=== PATIENT | male | born 1940 | race Caucasian/White ===

== ENCOUNTER 2017-12-15 07:13 | Outpatient (CLI) | payer MEDICARE, BC ==
[2017-12-15 12:04] LABS: ALBUMIN 4.4 g/dL (3.2-5.5); ALBUMIN/GLOBULIN RATIO 1.5 (1.0-2.2); BILIRUBIN,TOTAL 0.8 mg/dL (0.2-1.0); CALCIUM 9.3 mg/dL (8.5-10.3); CREATININE 1.9 mg/dL (0.6-1.2); TOTAL PROTEIN 7.4 g/dL (6.7-8.2)
[2017-12-15 12:24] LABS: THYROID STIMULATING HORMONE 0.55 uIU/mL (0.34-5.60)
[2017-12-15 12:26] LABS: FREE T4 (FREE THYROXINE) 0.8 ng/dL (0.58-1.64)
[2017-12-15 12:45] LABS: HB2 TOTAL 12.8 g/dL; HEMOGLOBIN A1C 0.6 g/dL; HEMOGLOBIN A1C % 6.4 % (4.6-6.2)
[2017-12-15 17:39] LABS: BASOPHILS # (AUTO) 0.1 10^3/uL (0.0-0.1); BASOPHILS % (AUTO) 1.4 %; EOSINOPHILS # (AUTO) 0.6 10^3/uL (0.0-0.7); EOSINOPHILS % (AUTO) 11.1 %; HGB - HEMOGLOBIN 11.7 g/dL (14.0-18.0); LYMPHOCYTES % (AUTO) 17.7 %; MEAN CORPUSCULAR HEMOGLOBIN 31.3 pg (27.0-31.0); MEAN CORPUSCULAR HGB CONC 33.1 g/dL (32.0-36.0); MEAN CORPUSCULAR VOLUME 94.7 fL (80.0-94.0); MEAN PLATELET VOLUME 8.6 fL (7.4-11.4); MONOCYTES # (AUTO) 0.5 10^3/uL (0.0-1.0); MONOCYTES % (AUTO) 9.5 %; NEUTROPHILS # (AUTO) 3.3 10^3/uL (1.5-6.6); NEUTROPHILS % (AUTO) 60.3 %; PLT - PLATELET COUNT 258 10^3/uL (130-450); RED BLOOD COUNT 3.73 10^6/uL (4.70-6.10); RED CELL DISTRIBUTION WIDTH 14.2 % (12.0-15.0); WHITE BLOOD COUNT 5.5 x10^3/uL (4.8-10.8)
[2017-12-17 18:52] LABS: HDL LARGE 4753 nmol/L (3382-9376); LDL PARTICLE NUMBER 1140 nmol/L (732-2035); LDL PATTERN B Pattern (A); LDL PEAK SIZE 215.8 Angstrom (> OR = 217.4); LDL SMALL 224 nmol/L (85-473)
== END 2017-12-15 07:14 | disposition home or self-care (01) ==
LOC: LAB.F 07:13
PROVIDERS: ATTEND Internal Medicine
DX: E11.65 Type 2 diabetes mellitus with hyperglycemia (principal); E78.2 Mixed hyperlipidemia; E03.9 Hypothyroidism, unspecified; E11.22 Type 2 diabetes mellitus with diabetic chronic kidney disease; N18.3 Chronic kidney disease, stage 3 (moderate); R80.9 Proteinuria, unspecified
CPT/HCPCS: 36415; 80053; 80069; 81599; 82465; 83036; 83704; 83718; 84100; 84156; 84439; 84443; 84478; 85025

== ENCOUNTER 2017-12-30 05:57 | Outpatient (CLI) | payer MEDICARE, BC | END 2017-12-30 05:58 | disposition short-term general hospital (02) | LOC: EMS 05:57 | PROVIDERS: ATTEND Surgery | DX: R55 Syncope and collapse (principal); R11.2 Nausea with vomiting, unspecified | CPT/HCPCS: A0170; A0425; A0427 ==

== ENCOUNTER 2018-01-26 07:12 | Outpatient (CLI) | payer MEDICARE, BC ==
[2018-01-26 12:19] LABS: CALCIUM 9.5 mg/dL (8.5-10.3); PHOSPHORUS 4.1 mg/dL (2.5-4.6)
== END 2018-01-26 07:13 | disposition home or self-care (01) ==
LOC: LAB.F 07:12
PROVIDERS: ATTEND Internal Medicine
DX: N18.3 Chronic kidney disease, stage 3 (moderate) (principal); R80.9 Proteinuria, unspecified
CPT/HCPCS: 36415; 80069; 84156

== ENCOUNTER 2018-03-17 07:39 | Outpatient (CLI) | payer MEDICARE, BC ==
[2018-03-17 15:53] LABS: ALBUMIN 4.3 g/dL (3.2-5.5); CALCIUM 9.2 mg/dL (8.5-10.3); CREATININE 1.5 mg/dL (0.6-1.2); PHOSPHORUS 3.7 mg/dL (2.5-4.6); URIC ACID 7.2 mg/dL (2.6-7.2)
[2018-03-17 16:00] LABS: CREATININE,URINE 85.7 mg/dL; PROTEIN/CREATININE RATIO,URINE 0.1 (<=0.2)
== END 2018-03-17 07:40 | disposition home or self-care (01) ==
LOC: LAB.F 07:39
PROVIDERS: ATTEND Internal Medicine Nephrology
DX: N18.3 Chronic kidney disease, stage 3 (moderate) (principal); R80.9 Proteinuria, unspecified
CPT/HCPCS: 36415; 80069; 82306; 82570; 83036; 83970; 84156; 84550

== ENCOUNTER 2018-12-31 07:10 | Outpatient (CLI) | payer MEDICARE, BC ==
[2018-12-31 10:15] LABS: BASOPHILS # (AUTO) 0.1 10^3/uL (0.0-0.1); BASOPHILS % (AUTO) 0.8 %; EOSINOPHILS # (AUTO) 0.3 10^3/uL (0.0-0.7); EOSINOPHILS % (AUTO) 4.2 %; HGB - HEMOGLOBIN 12.4 g/dL (14.0-18.0); LYMPHOCYTES # (AUTO) 1.2 10^3/uL (1.5-3.5); LYMPHOCYTES % (AUTO) 18.5 %; MEAN CORPUSCULAR HEMOGLOBIN 30.8 pg (27.0-31.0); MEAN CORPUSCULAR HGB CONC 32.7 g/dL (32.0-36.0); MEAN CORPUSCULAR VOLUME 94.3 fL (80.0-94.0); MONOCYTES # (AUTO) 0.8 10^3/uL (0.0-1.0); MONOCYTES % (AUTO) 12.1 %; NEUTROPHILS # (AUTO) 4.1 10^3/uL (1.5-6.6); NEUTROPHILS % (AUTO) 64.1 %; PLT - PLATELET COUNT 233 10^3/uL (130-450); RED BLOOD COUNT 4.02 10^6/uL (4.70-6.10); RED CELL DISTRIBUTION WIDTH 13.8 % (12.0-15.0); WHITE BLOOD COUNT 6.4 x10^3/uL (4.8-10.8)
[2018-12-31 10:32] LABS: ALBUMIN 4.3 g/dL (3.2-5.5); ALBUMIN/GLOBULIN RATIO 1.5 (1.0-2.2); ALKALINE PHOSPHATASE 60 IU/L (42-121); ALT ALANINE AMINOTRANSFERASE 31 IU/L (10-60); AST ASPARTATE AMINOTRANSFERASE 22 IU/L (10-42); BILIRUBIN,TOTAL 1.1 mg/dL (0.2-1.0); BUN - BLOOD UREA NITROGEN 23 mg/dL (6-20); CALCIUM 9.7 mg/dL (8.5-10.3); CARBON DIOXIDE - CO2 22 mmol/L (21-32); CHLORIDE 106 mmol/L (101-111); CHOL/HDL RATIO 3.1 (<5.0); CHOLESTEROL 109 mg/dL; CREATININE 1.6 mg/dL (0.6-1.2); GFR - MDRD 42 (>89); GLUCOSE 109 mg/dL (70-100); HDL CHOLESTEROL 35 mg/dL; LDL CHOLESTEROL,CALCULATED 58 mg/dL; LDL/HDL RATIO 1.7 (<3.6); SODIUM 142 mmol/L (135-145); TOTAL PROTEIN 7.2 g/dL (6.7-8.2); VLDL CHOLESTEROL 16 mg/dL
[2018-12-31 10:39] LABS: HB2 TOTAL 12.7 g/dL; HEMOGLOBIN A1C 0.6 g/dL; HEMOGLOBIN A1C % 6.5 % (4.6-6.2)
[2018-12-31 10:44] LABS: THYROID STIMULATING HORMONE 0.95 uIU/mL (0.34-5.60)
[2018-12-31 10:46] LABS: FREE T4 (FREE THYROXINE) 0.88 ng/dL (0.58-1.64)
== END 2018-12-31 07:11 | disposition home or self-care (01) ==
LOC: LAB.S 07:10
PROVIDERS: ATTEND Family Medicine
DX: E11.22 Type 2 diabetes mellitus with diabetic chronic kidney disease (principal); I12.9 Hypertensive chronic kidney disease with stage 1 through stage 4 chronic kidney disease, or unspecified chronic kidney disease; N18.3 Chronic kidney disease, stage 3 (moderate); R80.9 Proteinuria, unspecified; E78.2 Mixed hyperlipidemia
CPT/HCPCS: 36415; 80053; 80061; 82043; 82570; 83036; 83721; 84100; 84156; 84439; 84443; 85025

== ENCOUNTER 2019-03-11 06:58 | Outpatient (CLI) | payer MEDICARE, BC ==
[2019-03-11 10:30] LABS: ALBUMIN 4.3 g/dL (3.2-5.5); CREATININE 1.5 mg/dL (0.6-1.2); PHOSPHORUS 3.9 mg/dL (2.5-4.6)
== END 2019-03-11 06:59 | disposition home or self-care (01) ==
LOC: LAB.S 06:58
PROVIDERS: ATTEND Internal Medicine
DX: N18.3 Chronic kidney disease, stage 3 (moderate) (principal); R80.9 Proteinuria, unspecified
CPT/HCPCS: 36415; 80069; 84155; 84156

== ENCOUNTER 2019-03-17 06:54 | Outpatient (CLI) | payer MEDICARE, BC ==
[2019-03-17 10:26] LABS: BASOPHILS # (AUTO) 0.1 10^3/uL (0.0-0.1); EOSINOPHILS # (AUTO) 0.3 10^3/uL (0.0-0.7); EOSINOPHILS % (AUTO) 5.2 %; HGB - HEMOGLOBIN 12.5 g/dL (14.0-18.0); LYMPHOCYTES # (AUTO) 1.2 10^3/uL (1.5-3.5); MEAN CORPUSCULAR HEMOGLOBIN 30.6 pg (27.0-31.0); MEAN CORPUSCULAR HGB CONC 32.8 g/dL (32.0-36.0); MEAN CORPUSCULAR VOLUME 93.4 fL (80.0-94.0); MEAN PLATELET VOLUME 10.6 fL (7.4-11.4); MONOCYTES # (AUTO) 0.8 10^3/uL (0.0-1.0); MONOCYTES % (AUTO) 12.6 %; NEUTROPHILS # (AUTO) 3.6 10^3/uL (1.5-6.6); NEUTROPHILS % (AUTO) 60.9 %; PLT - PLATELET COUNT 226 10^3/uL (130-450); RED BLOOD COUNT 4.08 10^6/uL (4.70-6.10); RED CELL DISTRIBUTION WIDTH 13.7 % (12.0-15.0)
[2019-03-17 10:37] LABS: ALBUMIN 4.3 g/dL (3.2-5.5); ALBUMIN/GLOBULIN RATIO 1.6 (1.0-2.2); ALKALINE PHOSPHATASE 53 IU/L (42-121); ALT ALANINE AMINOTRANSFERASE 22 IU/L (10-60); AST ASPARTATE AMINOTRANSFERASE 17 IU/L (10-42); BUN - BLOOD UREA NITROGEN 28 mg/dL (6-20); CARBON DIOXIDE - CO2 24 mmol/L (21-32); CHLORIDE 107 mmol/L (101-111); CHOL/HDL RATIO 3.7 (<5.0); CHOLESTEROL 126 mg/dL; CREATININE 1.6 mg/dL (0.6-1.2); GFR - MDRD 42 (>89); GLUCOSE 98 mg/dL (70-100); HDL CHOLESTEROL 34 mg/dL; LDL CHOLESTEROL,CALCULATED 77 mg/dL; LDL/HDL RATIO 2.3 (<3.6); SODIUM 140 mmol/L (135-145); VLDL CHOLESTEROL 15 mg/dL
[2019-03-17 10:43] LABS: HB2 TOTAL 12.8 g/dL; HEMOGLOBIN A1C 0.63 g/dL; HEMOGLOBIN A1C % 6.7 % (4.6-6.2)
[2019-03-17 10:47] LABS: THYROID STIMULATING HORMONE 0.85 uIU/mL (0.34-5.60)
[2019-03-17 10:49] LABS: FREE T4 (FREE THYROXINE) 0.79 ng/dL (0.58-1.64)
== END 2019-03-17 06:55 | disposition home or self-care (01) ==
LOC: LAB.S 06:54
PROVIDERS: ATTEND Family Medicine
DX: E11.9 Type 2 diabetes mellitus without complications (principal); E78.2 Mixed hyperlipidemia; I10 Essential (primary) hypertension
CPT/HCPCS: 36415; 80053; 80061; 83036; 83721; 84439; 84443; 85025

== ENCOUNTER 2019-11-25 07:01 | Outpatient (CLI) | payer MEDICARE, BC ==
[2019-11-25 15:08] LABS: BASOPHILS # (AUTO) 0.1 10^3/uL (0.0-0.1); BASOPHILS % (AUTO) 0.9 %; EOSINOPHILS # (AUTO) 0.3 10^3/uL (0.0-0.7); EOSINOPHILS % (AUTO) 4.3 %; HGB - HEMOGLOBIN 14.4 g/dL (14.0-18.0); LYMPHOCYTES # (AUTO) 1.1 10^3/uL (1.5-3.5); LYMPHOCYTES % (AUTO) 16.2 %; MEAN CORPUSCULAR HEMOGLOBIN 29.6 pg (27.0-31.0); MEAN CORPUSCULAR HGB CONC 31.2 g/dL (32.0-36.0); MEAN CORPUSCULAR VOLUME 95.1 fL (80.0-94.0); MEAN PLATELET VOLUME 10.8 fL (7.4-11.4); MONOCYTES # (AUTO) 0.8 10^3/uL (0.0-1.0); MONOCYTES % (AUTO) 12.2 %; NEUTROPHILS # (AUTO) 4.3 10^3/uL (1.5-6.6); NEUTROPHILS % (AUTO) 65.9 %; PLT - PLATELET COUNT 244 10^3/uL (130-450); RED BLOOD COUNT 4.86 10^6/uL (4.70-6.10); RED CELL DISTRIBUTION WIDTH 15.4 % (12.0-15.0); WHITE BLOOD COUNT 6.5 x10^3/uL (4.8-10.8)
[2019-11-25 15:57] LABS: HB2 TOTAL 15.1 g/dL; HEMOGLOBIN A1C 0.65 g/dL; HEMOGLOBIN A1C % 6.1 % (4.6-6.2)
[2019-11-25 15:58] LABS: ALBUMIN 3.9 g/dL (3.2-5.5); ALBUMIN/GLOBULIN RATIO 1.3 (1.0-2.2); BILIRUBIN,TOTAL 1.1 mg/dL (0.2-1.0); CALCIUM 9.2 mg/dL (8.5-10.3); CREATININE 1.8 mg/dL (0.6-1.2); TOTAL PROTEIN 6.9 g/dL (6.7-8.2)
[2019-11-25 16:05] LABS: CHOL/HDL RATIO 2.8 (<5.0); CHOLESTEROL 109 mg/dL; HDL CHOLESTEROL 39 mg/dL; LDL CHOLESTEROL,CALCULATED 61 mg/dL; LDL/HDL RATIO 1.6 (<3.6); VLDL CHOLESTEROL 9 mg/dL
== END 2019-11-25 07:02 | disposition home or self-care (01) ==
LOC: LAB.S 07:01
PROVIDERS: ATTEND Internal Medicine
DX: E11.21 Type 2 diabetes mellitus with diabetic nephropathy (principal); E11.22 Type 2 diabetes mellitus with diabetic chronic kidney disease; N18.4 Chronic kidney disease, stage 4 (severe); E29.1 Testicular hypofunction
CPT/HCPCS: 36415; 80053; 80061; 82306; 83036; 83721; 83970; 84100; 84156; 84403; 85025

== ENCOUNTER 2020-01-24 04:33 | Emergency (ER) | payer MEDICARE, BC ==
[2020-01-24] MEDS ORDERED: BUFFERED LIDOCAINE 10 ML SYRINGE IU ONE (04:48)
[2020-01-24] MEDS ORDERED: BACITRACIN ZINC OINT 1 PACKET TOP STA (05:22)
[2020-01-24] MEDS ORDERED: TETANUS/DIPHTHERIA/PERTUSSIS 0.5 ML SYRINGE IM ONE (05:34)
--- NOTE | 2020-01-24 05:42 | ED Physician Documentation ---
History of Present Illness - Stated complaint Stated Complaint: EYE LAC - Chief complaint Chief Complaint: Laceration - History obtained from History obtained from: Patient, Family - Additonal information Additional information: Patient comes emergency department complaining of laceration to left eyebrow after rolling out of bed while sleeping and falling onto a partially open door of his nightstand. Patient did not lose consciousness. He was not hurt in any other way. He takes a baby aspirin daily but no other anticoagulants. Patient denies visual changes. No headache. No focal neurologic deficits. No other complaints at this time. Review of Systems Ten Systems: 10 systems reviewed and negative Constitutional: reports: Reviewed and negative Eyes: reports: Reviewed and negative Ears: reports: Reviewed and negative Nose: reports: Reviewed and negative Throat: reports: Reviewed and negative Cardiac: reports: Reviewed and negative Respiratory: reports: Reviewed and negative GI: reports: Reviewed and negative : reports: Reviewed and negative Skin: reports: Laceration (s) Musculoskeletal: reports: Reviewed and negative Neurologic: reports: Reviewed and negative Psychiatric: reports: Reviewed and negative Endocrine: reports: Reviewed and negative Immunocompromised: reports: Reviewed and negative PD PAST MEDICAL HISTORY - Past Medical History Past Medical History: Yes - Past Surgical History Past Surgical History: Yes - Present Medications Home Medications: Ambulatory Orders Medication Instructions Recorded Confirmed Aspirin [Aspirin EC] 81 mg PO 01/24/20 - Allergies Allergies/Adverse Reactions: Allergies Allergy/AdvReac Type Severity Reaction Status Date / Time No Known Drug Allergies Allergy Verified 01/24/20 04:44 - Social History Does the pt smoke?: No Smoking Status: Never smoker Does the pt drink ETOH?: Yes Does the pt have substance abuse?: No - Immunizations Immunizations are current?: Yes - POLST Patient has POLST: No PD ED PE NORMAL - Vitals Vital signs reviewed: Yes - General General: Alert and oriented X 3, No acute distress, Well developed/nourished - HEENT HEENT: PERRL, EOMI, Moist mucous membranes, Other (3 cm Curvilinear laceration to left eyebrow. Obliquely angled Superiorly. No foreign bodies. Approximate depth 1 cm obliquely. Mild active bleeding.) - Neck Neck: Supple, no meningeal sign - Respiratory Respiratory: No respiratory distress - Derm Derm: Normal color, Warm and dry, No rash - Extremities Extremities: No deformity - Neuro Neuro: Alert and oriented X 3 - Psych Psych: Normal mood, Normal affect Results - Vitals Vitals: Vital Signs - 24 hr 01/24/20 04:42 Temperature 36.3 C L Heart Rate 64 Respiratory 18 Rate Blood Pressure 156/73 H O2 Saturation 95 Oxygen O2 Source Room air Procedures - Laceration (location) L eyebrow Length in cm: 3 Wound type: Curved, Into subcut fat, Clean Tendon involvement: No: Tendon Injury Anesthesia: Lidocaine 1% Wound Preparation: Hibiclens, Irrigated copiously NS, Wound explored, To the base. No: FB identified Skin layer closure: Nylon, Interrupted, Size #-0 - enter number (5.0), Sutures - enter # (7) Other: Patient tolerated well, No complications, Neurovascular intact, Dressing applied, Tetanus booster given Complexity: Intermediate PD MEDICAL DECISION MAKING - ED course Complexity details: considered differential, d/w patient, d/w family ED course: Patient's wound was repaired, as noted above. We have discussed home management of the symptoms, wound care at home, and the usual indications for return, as well as the need for suture removal in approximately 7 days. Departure - Departure Disposition: 01 Home, Self Care Clinical Impression: Laceration Condition: Stable Instructions: ED Laceration Facial Sutr Tape Comments: Your tetanus has been updated today. You will need to have another tetanus shot in about 10 years. Your wound has been repaired with 7 sutures. These are synthetic, and will need to be removed in approximately 7 days. Your wound should be rechecked at that time to see if it is ready for suture removal. You may have your wound rechecked at your Primary care physician's office, or at urgent care, walk-in clinic, or the emergency department. You should generally keep the wound clean and dry, though you may allow water and soap to run over the wound when you are bathing. Please do not rub, scrub, or immerse the wound as long as the sutures are in place. This is to prevent infection. If you notice redness and or swelling spreading progressively away from the wound, or if the wound becomes "mushy" and moist and begins to drain or splits apart, you should have the wound rechecked by medical professional, as these may represent signs of infection.
[2020-01-24 05:47] VITALS: BP 145/78
== END 2020-01-24 05:41 | disposition home or self-care (01) ==
LOC: ED 04:33
DX: S01.112A Laceration without foreign body of left eyelid and periocular area, initial encounter (principal); W06.XXXA Fall from bed, initial encounter; Y92.003 Bedroom of unspecified non-institutional (private) residence as the place of occurrence of the external cause; Z79.82 Long term (current) use of aspirin
CPT/HCPCS: 12052; 90471; 90715; 99283; 99284; A9270

== ENCOUNTER 2020-11-21 09:33 | Emergency (ER) | payer MEDICARE, BC ==
[2020-11-21] MEDS ORDERED: ASPIRIN CHEW 81 MG TABLET PO STA (09:45)
[2020-11-21] MEDS ORDERED: SODIUM CHLORIDE 0.9% 1,000 ML IV STA (09:45)
[2020-11-21 09:52] LABS: BASOPHILS % (AUTO) 0.4 %; EOSINOPHILS # (AUTO) 0.2 10^3/uL (0.0-0.7); EOSINOPHILS % (AUTO) 2.2 %; HCT - HEMATOCRIT 45.5 % (42.0-52.0); LYMPHOCYTES % (AUTO) 10.1 %; MEAN CORPUSCULAR HEMOGLOBIN 31.2 pg (27.0-31.0); MEAN CORPUSCULAR VOLUME 94.6 fL (80.0-94.0); MEAN PLATELET VOLUME 9.9 fL (7.4-11.4); NEUTROPHILS # (AUTO) 7.3 10^3/uL (1.5-6.6); NEUTROPHILS % (AUTO) 76.8 %; PLT - PLATELET COUNT 214 10^3/uL (130-450); RED BLOOD COUNT 4.81 10^6/uL (4.70-6.10); RED CELL DISTRIBUTION WIDTH 13.7 % (12.0-15.0); WHITE BLOOD COUNT 9.5 x10^3/uL (4.8-10.8)
--- NOTE | 2020-11-21 09:54 | ED Physician Documentation ---
PD HPI CHEST PAIN - Stated complaint Stated Complaint: CHEST PX - Chief complaint Chief Complaint: Cardiac - History obtained from History obtained from: Patient - Additional information Additional information: Patient comes emergency department chief complaint of left shoulder and upper arm discomfort for the last 3 days. Patient states that this seems to come on randomly without specific triggers, and that nothing really makes it better or worse. The pain is dull in nature, and at worst is usually a 3-4/10, though patient notes he has a high pain tolerance. Patient states it lasts for up to several hours and then fades away on its own. He denies any exertional chest pain, dyspnea, or fatigue. No associated shortness of breath or nausea with the Pain episodes. He states the pain does go down into his upper chest a little bit sometimes. The patient states he has had symptoms like this on occasion previously but this has been fairly rare. He denies fevers or chills. No cough. No abdominal pain. He has a history of GERD for which he takes omeprazole. Patient also has a history of diabetes type 2 and hypertension, for which he is on medication. Patient's does note that the patient's blood pressure has been running higher, with systolics in the 160s, for the last several days. She states the patient seems dull and almost depressed and just not like himself. No other complaints at this time. The patient does have a weight and test bar clerk down in [place], where he lives 7 months out of the year, who sees him on a yearly basis. He is also seen Dr. Hahn in [place] previously for a syncopal episode follow-up. The patient states he has had stress test previously, both on the treadmill and with medication, and that there has not been any significant finding. His most recent one was about 2 years ago he thinks. No known history of cardiac disease of any kind, including coronary artery disease. The patient has had some issues at C5-6, but does not have any chronic neck or shoulder problems otherwise that he knows of. Patient states his last episode of the discomfort was this morning when he woke up, but that he has not had any further discomfort today and has no current symptoms. Review of Systems Ten Systems: 10 systems reviewed and negative Constitutional: reports: Reviewed and negative Eyes: reports: Reviewed and negative Ears: reports: Reviewed and negative Nose: reports: Reviewed and negative Throat: reports: Reviewed and negative Cardiac: reports: Chest pain / pressure Respiratory: reports: Reviewed and negative GI: reports: Reviewed and negative : reports: Reviewed and negative Skin: reports: Reviewed and negative Musculoskeletal: reports: Reviewed and negative Neurologic: reports: Reviewed and negative Psychiatric: reports: Reviewed and negative Endocrine: reports: Reviewed and negative Immunocompromised: reports: Reviewed and negative PD PAST MEDICAL HISTORY - Past Medical History Past Medical History: Yes Cardiovascular: Hypertension, High cholesterol Respiratory: None Neuro: Peripheral neuropathy, Other Endocrine/Autoimmune: Type 2 diabetes GI: GERD : Renal insuffiency HEENT: None Psych: None Musculoskeletal: None Derm: None Other Past Medical History: chronic dizziness - Past Surgical History Past Surgical History: Yes Ortho: Knee replacement - Present Medications Home Medications: Ambulatory Orders Medication Instructions Recorded Confirmed Aspirin [Aspirin EC] 81 mg PO DAILY 01/24/20 11/21/20 Amlodipine Besylate [Norvasc] 10 mg PO DAILY 11/21/20 11/21/20 Atorvastatin Calcium 40 mg PO DAILY 11/21/20 11/21/20 Doxazosin Mesylate [Cardura] 2 mg PO DAILY 11/21/20 11/21/20 Gabapentin [Gralise] 300 mg PO DAILY 11/21/20 11/21/20 Glimepiride [Amaryl] 2 mg PO DAILY 11/21/20 11/21/20 Insulin Glargine,Hum.rec.anlog 24 - 30 unit SUBQ HS 11/21/20 11/21/20 [Toujeo Solostar] Lisinopril [Zestril] 20 mg PO DAILY 11/21/20 11/21/20 - Allergies Allergies/Adverse Reactions: Allergies Allergy/AdvReac Type Severity Reaction Status Date / Time No Known Drug Allergies Allergy Verified 11/21/20 09:36 - Social History Does the pt smoke?: No Smoking Status: Never smoker Does the pt drink ETOH?: Yes ETOH Use: Liquor Does the pt have substance abuse?: No - Immunizations Immunizations are current?: Yes - POLST Patient has POLST: No PD ED PE NORMAL - Vitals Vital signs reviewed: Yes - General General: Alert and oriented X 3, No acute distress - HEENT HEENT: Atraumatic, PERRL, EOMI, Moist mucous membranes - Neck Neck: Supple, no meningeal sign, No bony TTP - Cardiac Cardiac: RRR, No murmur, Strong equal pulses - Respiratory Respiratory: No respiratory distress, Clear bilaterally - Abdomen Abdomen: Soft, Non tender, Non distended - Back Back: No spinal TTP - Derm Derm: Normal color, Warm and dry, No rash - Extremities Extremities: No deformity, No tenderness to palpate, Normal ROM s pain, No edema, No calf tenderness / cord - Neuro Neuro: Alert and oriented X 3, senior product integrity engineer 2-12 intact, No motor deficit, No sensory deficit, Normal speech - Psych Psych: Normal mood, Normal affect Results - Vitals Vitals: Oxygen O2 Source Room air - EKG (time done) 0944 Rate: Rate (enter#) (66) Rhythm: NSR [place]: Normal Intervals: Normal NH, Other (nonspecific IVCD) QRS: Normal Ischemia: Normal ST segments - Labs Labs: Laboratory Tests 11/21/20 11/21/20 11/21/20 09:45 09:45 09:45 WBC 9.5 RBC 4.81 Hgb 15.0 Hct 45.5 MCV 94.6 H MCH 31.2 H MCHC 33.0 RDW 13.7 Plt Count 214 MPV 9.9 Neut # (Auto) 7.3 H Lymph # (Auto) 1.0 L [place] # (Auto) 1.0 Eos # (Auto) 0.2 Baso # (Auto) 0.0 Absolute Nucleated RBC 0.00 Nucleated RBC % 0.0 D-Dimer Sodium 138 Potassium 4.5 Chloride 105 Carbon Dioxide 25 Anion Gap 8.0 BUN 30 H Creatinine 1.7 H Estimated GFR (MDRD) 39 L Glucose 133 H Calcium 9.8 Total Bilirubin 1.0 AST 25 ALT 45 Alkaline Phosphatase 65 Troponin I High Sens 5.0 B-Natriuretic Peptide Total Protein 7.6 Albumin 4.6 Globulin 3.0 Albumin/Globulin Ratio 1.5 Lipase 37 11/21/20 11/21/20 09:45 10:01 WBC RBC Hgb Hct MCV MCH MCHC RDW Plt Count MPV Neut # (Auto) Lymph # (Auto) [place] # (Auto) Eos # (Auto) Baso # (Auto) Absolute Nucleated RBC Nucleated RBC % D-Dimer 234.2 Sodium Potassium Chloride Carbon Dioxide Anion Gap BUN Creatinine Estimated GFR (MDRD) Glucose Calcium Total Bilirubin AST ALT Alkaline Phosphatase Troponin I High Sens B-Natriuretic Peptide 22 Total Protein Albumin Globulin Albumin/Globulin Ratio Lipase - Rads (name of study) CXR Radiology: Final report received, EMP read indepedently, See rad report (NAD) PD MEDICAL DECISION MAKING - ED course Complexity details: reviewed results, re-evaluated patient, considered differential, d/w patient ED course: The patient was worked up with labs, EKG, and chest x-ray, all of which were unremarkable. He was given a dose of aspirin here in the emergency department. THe pt was asymptomatic in the ED, but I was concerned about the potential for CAD, based on his risk factors and the symptoms he had been having. Unfortunately, the patient's recent medical care had all been in [place], including his weight and test bar clerk. Pt had seen Dr. Hahn previously, and I did have staff try to reach him or the weight and test bar clerk bus driver/monitor for his group. However, we were unable to get through to his clinic, and had to leave a message, and after trying unsuccessfully to reach him through [facility], I did decide to reach out to [facility], instead. I discussed his case with Dr. Calderón, and he stated he would get the pt into his clinic in an expedited manner, likely in the next couple of days. I discussed this with the pt and his , and they were agreeable. The pt was chest pain free throughout his stay here, and was able to ambulate to the bathroom without difficulty. We have discussed the usual indications for return, and that pt should have a low threshold for this. Departure - Departure Disposition: 01 Home, Self Care Clinical Impression: Chest pain Qualifiers: Chest pain type: unspecified Qualified Code(s): R07.9 - Chest pain, unspecified Condition: Stable Instructions: ED Chest Pain Atypical Unkn Cause, ED Heart Disease Risk Factors Follow-Up: Esvin Calderón MD [Physician No Access] - Comments: Your labs and EKG look good today. Your case has been discussed with Dr. Calderón of cardiology through [facility], and he has said that they would be happy to see you in an expedited fashion. His office will be calling you with an appointment later today or tomorrow, and will most likely see you within the this week. As your blood pressures been running high, you may increase your lisinopril to 20 mg every morning instead of 10, since this seems to have been effective so far. If you develop worsening chest pain, especially if associated with shortness of breath, nausea, lightheadedness, and/or sweating, please return to the emergency department without delay. Discharge Date/Time: 11/21/20 13:16
[2020-11-21 10:10] LABS: ALBUMIN 4.6 g/dL (3.2-5.5); ALBUMIN/GLOBULIN RATIO 1.5 (1.0-2.2); CALCIUM 9.8 mg/dL (8.5-10.3); CREATININE 1.7 mg/dL (0.6-1.2); POTASSIUM 4.5 mmol/L (3.5-5.0); TOTAL PROTEIN 7.6 g/dL (6.7-8.2)
--- NOTE | 2020-11-21 10:13 | XRAY Report ---
PROCEDURE: Chest 1 View X-Ray INDICATIONS: Chest pain TECHNIQUE: One view of the chest was acquired. COMPARISON: None FINDINGS: Surgical changes and devices: None. Lungs and pleura: No pleural effusions or pneumothorax. Mild bibasilar atelectasis. No focal consoli dation. Mediastinum: Mediastinal contours appear normal. Heart size is normal. Bones and chest wall: No suspicious bony lesions. Overlying soft tissues appear unremarkable. IMPRESSION: No acute finding. Reviewed by: Yong Negro MD on 11/21/2020 10:12 AM PDT Approved by: Yong Negro MD on 11/21/2020 10:12 AM PDT Station ID: [id number]
--- OUTSIDE RECORDS SUMMARY | 2020-11-21 10:34 | EXTERNAL MEDICAL SUMMARY RPT | Continuity of Care Document ---
:1940 Demographics Phone Unavailable Preferred Language Unknown Marital Status Unknown Yazidism Affiliation Unknown Race Unknown Ethnic Group Unknown Author Organization [place] Address [address] [id number] Phone Allergies Encounters Medications Problems Results
[2020-11-21 13:14] VITALS: BP 148/71
== END 2020-11-21 13:16 | disposition home or self-care (01) ==
LOC: ED 09:33
DX: R07.9 Chest pain, unspecified (principal); I10 Essential (primary) hypertension; E11.42 Type 2 diabetes mellitus with diabetic polyneuropathy; Z79.4 Long term (current) use of insulin
CPT/HCPCS: 36415; 71045; 80053; 83690; 83880; 84484; 85025; 85379; 93005; 96360; 96361; 99284; A9270

== ENCOUNTER 2021-01-23 07:49 | Outpatient (CLI) | payer MEDICARE, BC ==
[2021-01-23] MEDS ORDERED: REGADENOSON 0.4 MG/5 ML SYRINGE IVP ONE (10:58)
[2021-01-23] MEDS ORDERED: AMINOPHYLLINE 500 MG/20 ML VIAL ONE (10:58)
[2021-01-23] MEDS: REGADENOSON 0.4 MG/5 ML SYRINGE IVP ONE (11:08)
--- NOTE | 2021-01-23 11:25 | CARDIAC PROCEDURE NOTE ---
Stress Test Report Service Date: 01/23/21 Service Time: 09:00 Ordering Provider: Johnny Hahn MD Indication for Test: Atypical chest pain in patient with multiple ASCVD risk factors. Significant Medical History: Hansel has chronic knee pain s/p total knee replacement x 2. He typically exercises 5 times per week at local gym doing non-weight bearing exercises, which he tolerates without decrease over the past several weeks to months. He was seen in the [facility] ED on 11/21/20 for an episode of discomfort in his left upper chest and into his upper left arm, that was independent of activity, position and non-responsive to analgesics. Evaluation was negative for ACS and today he reports that this discomfort has not returned. He also reports prior significant lightheadedness/dizziness that was quite limiting while on doxazosin, which he s elf D/C'd with subsequent complete resolution of these symptoms. Cardiac Risk Factors: History of treated hypertension, type 2 diabetes mellitus and dyslipidemia; he denies significant family history of CAD and tobacco use. Type of Stress Test: Pharmacologic Stress Test with MPI Pharmacologic Agent: Lexiscan Procedure: -Pharmacologic Stress Test- After signing informed consent, the patient underwent a pharmacologic stress test using IV lexiscan while walking at 0.9 mph on the treadmill. The test was terminated due to completing the protocol Resting heart rate: 75 Peak heart rate: 98 Normal HR response. Resting BP: 171/92 Peak BP: 178/89 Hypertensive BP response. Rhythm during testing: Sinus rhythm throughout. Symptoms: None. EKG at rest showed Normal sinus rhythm with left axis and nonspecific intraventricular conduction delay (versus left anterior fascicular block with QRS prolongation). EKG at peak stress showed no ischemic ST changes by EKG criteria. Nuclear imaging was performed at rest and with stress. Detailed interpretation of the images is reported separately. Tyler Cheatham MD, was present throughout this walking lexiscan stress test and supervised it in all aspects. Summary: 1) Abnormal resting EKG. 2) Adequate stress was achieved. 3) Abnormal BP response to pharmacologic agent. 4) No ischemic changes by EKG criteria were seen at peak stress. 5) Nuclear imaging revealed normal left ventricular volumes and systolic function at rest and following vasodilator infusion. There was a small fixed inferolateral defect, most suggestive of attenuation artifact. See separate imaging report for more detail. 6) This is a low risk study that does not show specific evidence of prior infarct or inducible myocardial ischemia with vasodilator stress. 7) The patient was encouraged to obtain additional BP data by home monitoring, to review at subsequent provider visit.
--- NOTE | 2021-01-23 18:15 | Nuclear Medicine Report ---
PROCEDURE: Rest and pharmacological stress myocardial perfusion SPECT with gated imaging and ejection fraction INDICATIONS: CHEST PAIN / LEXISCAN RADIOPHARMACEUTICAL: 14.1 mCi Tc-99m Myoview IV at rest and 42.0 mCi Tc-99m Myoview IV at peak exerc ise. [id number] was performed. TECHNIQUE: Radiopharmaceutical was injected at peak stress test, and also at rest. SPECT images wer e obtained. SPECT myocardial perfusion images were displayed in short axis, horizontal long axis, an d vertical long axis views. Gated images were reviewed using Auto[employer] software. COMPARISON: None available. FINDINGS: Raw data: There is good myocardial labeling by radiotracer. No significant motion artifacts. Lung- to-heart ratio is 0.32 (normal is less than 0.46 for tetrafosmin tracer). Left ventricle function: Gated images demonstrate normal left ventricle wall thickening. No segment al wall motion abnormality. No transient ischemic dilation; TID is 0.98 (normal less than 1.30). Th e left ventricle resting end-diastolic volume is normal. Left ventricle stress ejection fraction is 64%; normal values are above 45%. Myocardial perfusion: There is a small, mild, fixed perfusion defect in the inferior lateral wall on supine images. Complete imaging, the inferolateral perfusion defect is nearly resolved suggesting at tenuation artifact. There is otherwise normal distribution of activity in the left and right ventricu lar myocardium. IMPRESSION: 1. Probably normal myocardial perfusion images. No convincing evidence for myocardial ischemia or inf arct. 2. Normal left ventricular volume and systolic function. 3. Please correlate with stress EKG result. PQRS ATTESTATIONS: Measure 322 - Is this imaging test primarily performed on a low-risk surgery patient for preoperative evaluation within 30 days preceding their low-risk non-cardiac surgery? Low-risk surgery is defined as cardiac or myocardial infarction less than 1%, including (but not limited to) endoscopic pr ocedures, superficial procedures, cataract surgery, and excisional breast surgery: Answer: No Measure 323 - Is this imaging test performed primarily for the monitoring of an asymptomatic patient who had percutaneous coronary intervention on the visit date or within 2 years of the visit date? An swer: No Measure 324 - Is this imaging test performed primarily for the initial detection and risk assessment on an asymptomatic, low coronary heart disease patient? Low CHD risk definition = clinicians should consider the maximum number of available patient factors used to estimate risk based on [place] (A TP III criteria), typically age, gender, diabetes, smoking status, and use of blood pressure medicati on, and integrate age appropriate estimates for missing elements, such as LDL or standard blood press ure. Answer: No Reviewed by: Qamar James MD on 01/23/2021 6:14 PM PDT Approved by: Qamar James MD on 01/23/2021 6:14 PM PDT Station ID: [id number]
== END 2021-01-23 07:50 | disposition home or self-care (01) ==
LOC: DI 07:49
PROVIDERS: ATTEND Internal Medicine Cardiovascular Disease
DX: R94.31 Abnormal electrocardiogram [ECG] [EKG] (principal); I10 Essential (primary) hypertension; E11.9 Type 2 diabetes mellitus without complications; E78.5 Hyperlipidemia, unspecified
CPT/HCPCS: 78452; 93017; A9500; J2785

== ENCOUNTER 2024-01-26 07:06 | Outpatient (CLI) | payer MEDICARE, BC ==
[2024-01-26 15:09] LABS: BASOPHILS # (AUTO) 0.1 10^3/uL (0.0-0.1); EOSINOPHILS # (AUTO) 0.4 10^3/uL (0.0-0.7); EOSINOPHILS % (AUTO) 5.1 %; HCT - HEMATOCRIT 51.6 % (42.0-52.0); HGB - HEMOGLOBIN 16.3 g/dL (14.0-18.0); LYMPHOCYTES # (AUTO) 1.3 10^3/uL (1.5-3.5); LYMPHOCYTES % (AUTO) 18.8 %; MEAN CORPUSCULAR HEMOGLOBIN 30.5 pg (27.0-31.0); MEAN CORPUSCULAR HGB CONC 31.6 g/dL (32.0-36.0); MEAN CORPUSCULAR VOLUME 96.4 fL (80.0-94.0); MEAN PLATELET VOLUME 10.5 fL (7.4-11.4); MONOCYTES # (AUTO) 0.8 10^3/uL (0.0-1.0); MONOCYTES % (AUTO) 11.3 %; NEUTROPHILS # (AUTO) 4.5 10^3/uL (1.5-6.6); NEUTROPHILS % (AUTO) 62.7 %; PLT - PLATELET COUNT 250 10^3/uL (130-450); RED BLOOD COUNT 5.35 10^6/uL (4.70-6.10); RED CELL DISTRIBUTION WIDTH 14.4 % (12.0-15.0); WHITE BLOOD COUNT 7.1 x10^3/uL (4.8-10.8)
[2024-01-26 15:50] LABS: ALBUMIN 4.5 g/dL (3.2-5.5); CALCIUM 9.9 mg/dL (8.5-10.3); CREATININE 1.7 mg/dL (0.6-1.3); PHOSPHORUS 3.7 mg/dL (2.5-5.0); POTASSIUM 4.3 mmol/L (3.5-4.5)
== END 2024-01-26 07:07 | disposition home or self-care (01) ==
LOC: LAB.S 07:06
DX: N18.32 Chronic kidney disease, stage 3b (principal)
CPT/HCPCS: 36415; 80069; 83970; 84156; 85025